=== PATIENT | male | born 1985 | race Caucasian/White ===

== ENCOUNTER 2020-10-13 19:20 | Emergency (ER) | payer OTHER ==
[2020-10-13] MEDS ORDERED: IBUPROFEN600 MG PO (22:10)
== END 2020-10-13 22:20 | disposition home or self-care (01) ==
LOC: ER1 19:20
DX: S01.112A Laceration without foreign body of left eyelid and periocular area, initial encounter (principal); W22.8XXA Striking against or struck by other objects, initial encounter; F17.290 Nicotine dependence, other tobacco product, uncomplicated
CPT/HCPCS: 12011; 99282